=== PATIENT | male | born 1935 | race Caucasian/White ===

== ENCOUNTER 2016-09-08 21:29 | Inpatient (IN) | payer MEDICARE ==
--- NOTE | ~2016-09-08 | DS ---
Discharge Summary [address] [place]. [address] NAME: YIFAN STEWART : 31 STATUS : DIS IN PAT#: [id number] AGE: 81 ADM/REG DATE : 09/09/16 MR#: [id number] REPORT SERV DATE: 09/12/16 DICTATED BY: MIRIAN ATWOOD DATE: 09/11/16 REPORT STATUS : Draft TRANSCRIBED BY: MODL DATE: 09/11/16 ADMISSION DATE: 09/09/2016 DISCHARGE DATE: 09/11/2016 CONDITION ON DISCHARGE: The patient is being discharged home with home hospice after he has been evaluated by hospice team on 09/11/2016. This is per family request. The patient's code status is DNR and he is being sent home with home hospice. DIAGNOSIS ON DISCHARGE: Acute on chronic encephalopathy. This is ongoing. This could be secondary to gram-negative septicemia as the patient's blood culture 06/17 grew back gram- negative bacteria on 09/11/2016. The ID of this bacteria is pending at this time. After having a long discussion with the , the who has the power of personal injury attorney states that she absolutely does not want him on any IV antibiotics, but she would rather let him have p.o. antibiotics, and she states that she will be able to give the antibiotics by mouth with ice cream if the antibiotics can be crushed or the capsule can be split and the powder emptied in ice cream patient can have it that way. Again, this is per family request. Hence, while during hospital, hospice was consulted and the patient is being discharged home with home hospice. The only additional medicine we are sending him home on is aspirin 81 mg once a day and Levaquin 500 mg p.o. daily for seven days. The patient has also the following diagnoses on discharge: 1. Severe advanced dementia. 2. Dyslipidemia. The patient had an EEG that was read by Dr. Guillory on 09/10/2016 that showed that the patient had an abnormal EEG with slowing of the background secondary to encephalopathy including toxic metabolic encephalopathy. Dr. Simmons was consulted also for palliative care, and Dr. Simmons definitely referred the patient to hospice and agreed with family and that the patient was a hospice candidate because of the advanced dementia. Hence, the patient is being sent home with home hospice with the following medications: 1. Aspirin 81 mg once a day. 2. Levaquin 500 mg p.o. once a day for seven more days. 3. The levofloxacin itself is for gram-negative bacteria in the blood. 4. We will continue home medications that include Lipitor 20 mg once at bedtime, Aricept 10 mg once at bedtime, Namenda 5 mg p.o. b.i.d., Desyrel or trazodone 25 mg p.o. t.i.d., Neurontin 12 200 mg p.o. t.i.d. 5. Other medications will be per hospice. I do have the following most recent results on this patient. As the patient had 2 to 3 loose and unformed stools, we sent off a stool for C. diff. However, stool for C. diff came back negative. Also, stool studies have come back negative for Cryptosporidium. Other tests that the patient has had while in the hospital also includes culture of the Discharge Summary [address] [address] NAME: YIFAN STEWART : 33 STATUS : DIS IN PAT#: [id number] AGE: 81 ADM/REG DATE : 09/09/16 MR#: [id number] REPORT SERV DATE: 09/12/16 DICTATED BY: MIRIAN ATWOOD DATE: 09/11/16 REPORT STATUS : Draft TRANSCRIBED BY: ELIZABETH DATE: 09/11/16 stool that is still in progress at this time, but so far, no Shiga toxin has been detected. 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 His CBC so far is fairly normal with WBC of 7.8, hemoglobin 14.3, hematocrit of 42.4, and platelet count of 173. This is surprising for a patient with gram-negative bacilli in the blood. His blood pressure is stable also at this time. His electrolyte profile on 09/10/2016 shows sodium normal, potassium normal, BUN 17, creatinine 1.04, magnesium is normal too. Troponin I was slightly elevated at 0.05, likely demand related. No further action on this. Chest x-ray that he had showed lungs to be clear, heart size normal, and a small granuloma in the left upper lung field. CT scan of the brain without contrast also was in keeping with the MRI showing no acute CVA, but severe cerebral involutional changes. The patient also had a urinalysis that showed trace ketones, no leukocyte esterase, no blood, no nitrites, and occasional bacteria only. Hence, the patient is being sent home in stable condition with home hospice with medications as dictated above, and I have spent about 40 minutes in coordinating care of this patient including [id number] encounter, discussion of hospice with the patient's and also deciding on antibiotics, and also coordinating care with home hospice nurse. SHIRLEY/MODL Mirian Atwood M.D. / [id number] CC: Mirian Atwood M.D.
--- NOTE | ~2016-09-08 | CN ---
Consultation Report [facility] [address] [place]. [address] NAME: YIFAN STEWART : 31 STATUS : ADM Alexei PAT#: [id number] AGE: 81 ADM/REG DATE : 09/08/16 MR#: [id number] REPORT SERV DATE: 09/09/16 DICTATED BY: EDI PLATT DATE: 09/09/16 REPORT STATUS : Draft TRANSCRIBED BY: MODL DATE: 09/09/16 PALLIATIVE CARE CONSULTATION DATE OF CONSULTATION: 09/09/2016 CONSULT TIME: 1350 hours through 1435 hours. ALLERGIES: LISTED PENICILLIN, REACTION NOT SPECIFIED. REASON FOR CONSULTATION: Assistance with management and evaluation of altered mental status and progressive dementia. HISTORY OF PRESENT ILLNESS: Yifan is an 81-year-old gentleman who is cared for meticulously by his at home for a number of years. He has long-standing dementia. On Friday, he evidently experienced a period of altered mental status and subsequent unresponsiveness and apathy. He was spent most of Friday in bed, and because of concerns with hydration status, the brought him to the emergency room on Friday where he was admitted and evaluated. His laboratory parameters, radiological testing including CAT scan and chest x- ray as well as urinalysis were all unremarkable. We are asked to see him now in regard to his ongoing management caring for decision making and planning. The patient has a detailed power of commercial litigation attorney included in the chart, and the was quite clear about the fact that resuscitation life support etc. were not to be included in his care. We also got into a nutritional question at some point, and she was very clear that the feeding tube was also not something the patient had desired. Please see family history. In addition to increasing confusion and sleepiness, the patient also was having decreased activity overall. He would respond sluggishly to family request, but was much less interactive than his usual. The patient's usual status is that of a fairly demented gentleman, probably a FAST score of around 7A or 6D. He is incontinent for the most part, and as his relates to me, would say that he has to go to the bathroom, but subsequently on arrival in the bathroom, he is unclear as to why he is there. He has been wearing Depends for almost a year. His vocabulary is about 50% nonsensical speech. He is able to make some of his needs known. His bathes him. She also does his dressing. When she says that he is able to eat on his own, the daughter chimes in and notes that she does set up and then subsequently helps him eat. Other than a prior fall about in June of 2015 in which he had some facial trauma for which a CAT scan showed some facial injuries, he does not have much of the way of a medical history. His current home medications are listed in the chart, and with the exception of some Consultation Report [address] [place]. [address] NAME: YIFAN STEWART : 31 STATUS : ADM Alexei PAT#: [id number] AGE: 81 ADM/REG DATE : 09/08/16 MR#: [id number] REPORT SERV DATE: 09/09/16 DICTATED BY: EDI PLATT DATE: 09/09/16 REPORT STATUS : Draft TRANSCRIBED BY: ELIZABETH DATE: 09/09/16 trazodone and Neurontin, are really not very impressive for neuro active substances. There has been no medication changes or dose changes in the last 60 days. FAMILY HISTORY: Remarkable for the patient's father having had severe dementia given the patient's a willingness and desire to do a lot of advanced care planning before he ever got severely ill. He has been very clear about whom he wants to have involved in his decision making processes, his resuscitation desires which are DNR, as well as the use of a feeding tube. 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 He is a nonsmoker, nondrinker, no substance abuse, and has been to his , who is his primary caregiver for a number of years. Most of the information obtained on today's interview was provided by the patient's , Marina. We do not have much in the way of industrial exposures noted. REVIEW OF SYSTEMS: The patient's system review is remarkable for recent episodes of fatigue and weakness as well as withdrawal. In addition, he had one episode several weeks ago with severe drooling and salivation during a period of what was described as very deep sleep. His cardiovascular review was unimpressive. His respiratory review likewise unimpressive. GI, he is incontinent of bowel and bladder. The patient ambulates with standby assistance from his . He is unable to be left alone. He has had some intermittent headaches and is described as holding his head at times as well as some rocking motions. Psychiatric, no behavioral concerns or episodes. Endocrinology, skin, and pain history are negative. PHYSICAL EXAMINATION: GENERAL: Today shows a gentleman lying in bed, eating a sandwich with his right hand. He looks towards me, but says nothing. He then finishes his sandwich and goes to sleep. VITAL SIGNS: Blood pressure 134/58, pulse 77, respirations are 16, his temp is 99.6, BMI 26.6. Laboratories show essentially normal labs with the exception of a trivial elevation of troponin of 0.05. Constitutionally, we have a well-developed well nourished, somewhat withdrawn white male, who did not verbalize at all during the course of our interview. ENT: Unremarkable. CARDIOVASCULAR: Right bundle-branch block by telemetry, sinus rhythm. S1 and S2. No murmurs, gallops, or extra heart sounds. Periphery skin is warm and dry. No edema. RESPIRATIONS: Show coarse clear breath sounds. GI: History of diarrhea recently, which is not his usual pattern. : Incontinent. MUSCULOSKELETAL: Muscles are symmetrical without obvious atrophy. He moves all of his extremities around bed somewhat slowly but spontaneously, but not to command. NEUROLOGICAL: He looks at me, but does not follow with consistent commands. reports minimal speech which is garbled. It is somewhat improved over Friday. Consultation Report [address] [place]. [address] NAME: YIFAN STEWART : 31 STATUS : ADM Alexei PAT#: [id number] AGE: 81 ADM/REG DATE : 09/08/16 MR#: [id number] REPORT SERV DATE: 09/09/16 DICTATED BY: EDI PLATT DATE: 09/09/16 REPORT STATUS : Draft TRANSCRIBED BY: MODPalmira DATE: 09/09/16 PSYCH: No apparent distress. ENDOCRINE: TSH normal. ALLERGIES: Immunology negative. SKIN: Warm and dry without rash, petechiae, hemorrhage, or ecchymosis. IMPRESSION, RECOMMENDATION, AND DISCUSSION: This is an 81-year-old gentleman with a relatively sudden onset of a change in neurological status which appears to be slowly resolving. His laboratory parameters and other testing are relatively unimpressive. I wonder if he is not having underlying seizure problem. I think that given his current status, an MRI scan probably needs to get checked. I would also get PT and OT involved to do an assessment and see exactly what the home care situation is going to look like as the does have a part-time caregiver a couple of days a week and would certainly bring in more help if it would be required to have him at home. Placement is not an option. He may be hospice appropriate depending upon how his situation resolves and this may be worth investigating while he is here. Thank you for asking us to see this patient. We will of course follow him with you. YESSICA/ELIZABETH Edi Platt M.D. / [id number] CC: Aravind Singh
--- NOTE | ~2016-09-08 | EEG ---
Electroencephalogram [facility] [address] [place]. [address] NAME: YIFAN STEWART : 33 STATUS : ADM IN PAT#: [id number] AGE: 81 ADM/REG DATE : 09/09/16 MR#: [id number] REPORT SERV DATE: 09/10/16 DICTATED BY: ELIZABETH TOMLIN DATE: 09/10/16 REPORT STATUS : Draft TRANSCRIBED BY: MODL DATE: 09/10/16 EEG NUMBER: [id number]. HOURS OF SLEEP: 8 to 10. UPPER DOUBLER: Lamonte Guan INTRODUCTION: This is an 18-channel EEG recorded with scalp electrodes in the International 10-20 system. The patient is an 81-year-old male with altered mentation and inability to walk or speak. CURRENT MEDICATIONS: Include donepezil, atorvastatin, aspirin, Namenda, heparin, and trazodone. DESCRIPTION: The background rhythm while awake consisted of 5-6 hertz activity, which was present symmetrically. Slower and faster frequencies were intermixed. Intermittently movement and muscle artifact were present; however, the background rhythms remained even when alerted. Photic stimulation from the 1 through 21 hertz frequencies produced a symmetric driving response at the higher frequencies. There was also a large amount of eye movement artifact with photic stimulation. Hyperventilation was not performed. There was a continued frontal movement artifact and eye movement artifact throughout the EEG until immediately at the end of the EEG, he appeared to be come drowsy, but only for 30 seconds or so. On the EKG lead, a regular rhythm was recorded. IMPRESSION: THIS EEG IS ABNORMAL DUE TO MODERATE BACKGROUND SLOWING. THIS FINDING IS NONSPECIFIC AND MAY BE SEEN IN ENCEPHALOPATHIES OF POTENTIALLY MULTIPLE ETIOLOGIES INCLUDING TOXIC, METABOLIC, AND POSTICTAL STATES. AA/ELIZABETH Elizabeth Tomlin M.D. / [id number] CC: Aravind Mcknight ERIC
--- NOTE | ~2016-09-08 | HP ---
History And Physical [address] [facility] [place]. [address] NAME: YIFAN STEWART : 33 STATUS : ADM Alexei PAT#: [id number] AGE: 81 ADM/REG DATE : 09/08/16 MR#: [id number] REPORT SERV DATE: 09/09/16 DICTATED BY: ADOLFO WILHELM DATE: 09/09/16 REPORT STATUS : Draft TRANSCRIBED BY: MODPalmira DATE: 09/09/16 DATE OF ADMISSION: 09/08/2016 CHIEF COMPLAINT: Altered mental status and sleeping a lot. HISTORY OF PRESENT ILLNESS: This is an 81-year-old male with history of dementia, who presents to the emergency room at [facility] with the above-mentioned complaint. History is obtained from the patient's and daughter, who are at bedside, and reviewing data available on the [employer] system. According to the and the patient's daughter, he had been in his usual state of health until about Friday afternoon when he started having some confusion. He ate lunch and since then, he did not want any food at all. He said he was not hungry. Since then, he had been sleeping continuously, and over time it has become very hard to arouse or get a response from him. He had not taken any medications or anything to cause this. Again, he did not eat anything on Friday and slept through the day, and on Friday he was very difficult to arouse. This is a sudden change from his usual state. He does have severe dementia, but was able to take care of himself. He knew where he was, he used to eat by himself and do activities of daily living. The patient's and family were very concerned and decided to bring him to the emergency room to be evaluated. In the emergency room, he had altered mental status, encephalopathy, and troponin was elevated as well. Hospitalist Service is asked to admit him for further evaluation and treatment. At this time, his CT of the brain was negative. EKG showed normal sinus rhythm with a right bundle. At the time of my evaluation, he was quite obtunded, only grimacing to painful stimuli. All his vitals otherwise were within normal limits. But according to the , he had not complained of any chest pain or palpitations. She had not seen any orthopnea. He did not have any cough, hemoptysis, night sweats, or weight loss prior to all this. He has not had any recent falls or loss of consciousness. No history of recent fevers or chills. He had not had any nausea or vomiting. No history of diarrhea either. She had not seen any hematemesis, hematochezia, or hematuria. No other history of recent travel or exposures. PAST MEDICAL HISTORY: Significant for history of dementia. SOCIAL HISTORY: He does not smoke, drink, or use recreational drugs. 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 FAMILY HISTORY: Noncontributory. MEDICATIONS: His medications at home were reviewed by me in the chart today and reordered by me. REVIEW OF SYSTEMS: As in history of present illness. All other systems were reviewed in detail and are quite History And Physical [address] [place]. [address] NAME: YIFAN STEWART : 31 STATUS : ADM Alexei PAT#: [id number] AGE: 81 ADM/REG DATE : 09/08/16 MR#: [id number] REPORT SERV DATE: 09/09/16 DICTATED BY: ADOLFO WILHELM DATE: 09/09/16 REPORT STATUS : Draft TRANSCRIBED BY: ELIZABETH DATE: 09/09/16 unremarkable. PHYSICAL EXAMINATION: GENERAL: This is a pleasant 81-year-old, who appears to be not in any acute distress. HEENT: His head is atraumatic and normocephalic. He is not awake, oriented to time, place, and person. Pupils are equal, however equal, reacting to light and accommodating. NECK: Supple with no jugular venous distention, lymphadenopathy, or thyromegaly. LUNGS: Clear to auscultation with no wheezes, rubs, or crackles. HEART: Heart sounds were regular with no murmurs, rubs, or gallops. ABDOMEN: Soft, protuberant, and nontender. Bowel sounds are present. EXTREMITIES: No cyanosis, clubbing, or edema. NEUROLOGIC: Grossly intact. No focal deficits, although he was profoundly encephalopathic. VITAL SIGNS: His temperature today upon arrival was 97.6, pulse was 65, respirations were 25 a minute, and blood pressure was 123/62. Oxygen saturations were 97%, breathing 2 L of oxygen via nasal cannula. LABORATORY DATA: Reviewed on the [employer] system today showed normal CMP with a blood glucose of 99, his calcium was 7.9, magnesium was 2.2. His bilirubin was 3.1. Troponin was elevated at 0.05 today. We have no prior records. CBC showed a normal white blood cell count. Hemoglobin, hematocrit, and platelet count were also normal. His prothrombin time was 14.1 with an INR of 1.1. Urinalysis was grossly unremarkable. Films of the CT scan of his brain and chest x-ray were reviewed by me on the PACS today and interpreted by me. Per my interpretation and reviewing the Radiology report, there appears to be no acute intracranial process at this time. Chest x-ray films as interpreted by me showed no lobar consolidations or pleural effusions. There was no cardiomegaly. There was normal bony architecture. A 12-lead EKG done in the emergency room was reviewed and interpreted by me. There is normal sinus rhythm at a rate of [address] elevations. There is right bundle branch block. IMPRESSION: 1. Altered mental status. 2. Severe dementia. 3. Elevated troponin. 4. Right bundle-branch block. PLAN: We will admit Mr. Stewart to the Hospitalist Service with telemetry for a 24-hour observation period. We will follow serial troponin to rule out acute coronary syndrome and also check his TSH. We will start him on IV fluids cautiously for volume replacement and repeat chemistry, electrolytes, including a CBC in the morning. We will get Social Work to evaluate him for placement as well. Place him on unfractionated heparin for DVT prophylaxis while he is here. I have discussed the above plans with the patient and the family. History And Physical [address] [address] NAME: YIFAN STEWART : 31 STATUS : ADM Alexei PAT#: [id number] AGE: 81 ADM/REG DATE : 09/08/16 MR#: [id number] REPORT SERV DATE: 09/09/16 DICTATED BY: ADOLFO WILHELM DATE: 09/09/16 REPORT STATUS : Draft TRANSCRIBED BY: ELIZABETH DATE: 09/09/16 Questions were answered and they are agreeable to the above recommendations. Hospitalist Service will be following him during his stay here. /ELIZABETH Adolfo Wilhelm M.D. / [id number] CC: Aravind Singh MD
[2016-09-08 20:21] LABS: BASOPHILS 0.1 %; BASOPHILS ABSOLUTE 0.01 10/3/uL (0.0-0.16); EOSINOPHILS 0.1 %; EOSINOPHILS ABSOLUTE 0.01 10/3/uL (0.0-0.53); ER CBC TAT 0 Hrs 05 Mins; HEMATOCRIT 45.9 % (40.0-51.0); HEMOGLOBIN 15.5 g/dL (13.6-17.8); IMMATURE GRANULOCYTES 0.2 %; IMMATURE GRANULOCYTES ABSOLUTE 0.02 10/3/uL (0.0-0.11); LYMPHOCYTES 30.3 %; LYMPHOCYTES ABSOLUTE 2.84 10/3/uL (0.67-4.30); MEAN CORPUS HGB CONC 33.8 g/dL (32.0-36.0); MEAN CORPUSCULAR HEMOGLOB 31.6 pg (26.0-34.0); MEAN CORPUSCULAR VOLUME 93.5 fL (80-100); MONOCYTES 18.8 %; MONOCYTES ABSOLUTE 1.76 10/3/uL (0.21-1.20); NEUTROPHILS 50.5 %; NEUTROPHILS ABSOLUTE 4.73 10/3/uL (2.02-8.40); PLATELET COUNT 174 10/3/uL (150-400); RBC DISTRIBUTION WIDTH 12.7 % (12.0-16.0); RED CELL COUNT 4.91 10/6/uL (4.7-6.1); WHITE BLOOD CELLS 9.4 10/3/uL (4.5-10.5)
[2016-09-08 20:22] LABS: MANUAL DIFF NO %
[2016-09-08 20:32] LABS: INTERNATIONAL NORMAL RATI 1.1 UNITS (-); PARTIAL THROMBO TIME 31.8 SEC (22.5-37.2); PROTIME (NOT ORD) 14.1 SEC (12.0-14.5)
[2016-09-08 20:37] LABS: ALBUMIN 3.1 G/DL (3.5-5.0); ALKALINE PHOSPHATASE 80 U/L (45-117); BUN (BLOOD UREA NITROGEN) 22 MG/DL (6-23); CALCIUM, SERUM 7.9 MG/DL (8.5-10.4); CHLORIDE, SERUM 106 MMOL/L (96-112); CO2 (CARBON DIOXIDE) 28 MMOL/L (24-34); CREATININE 1.16 MG/DL (0.70-1.30); GFR AFRICAN AMERICAN 67 ML/MIN (>=60); GFR NON AFRICAN AMERICAN 58 ML/MIN (>=60); GLUCOSE, SERUM 99 MG/DL (60-99); POTASSIUM, SERUM 4.2 MMOL/L (3.5-5.3); SGPT(ALT) 44 U/L (5-65); SODIUM, SERUM 143 MMOL/L (135-148); TOTAL BILIRUBIN 0.8 MG/DL (0-1.2); TOTAL PROTEIN 7.1 G/DL (6.0-8.5)
[2016-09-08 20:38] LABS: DIRECT BILIRUBIN < 0.1 MG/DL (0.0-0.4); INDIRECT BILIRUBIN(NOT ORDER) 0.7 MG/DL (0.1-0.9); SGOT(AST) 148 U/L (5-40)
[2016-09-08 20:39] LABS: CHEST PAIN PROFILE TAT 0 Hrs 23 Mins; TROPONIN I 0.05 NG/ML (<0.05)
[2016-09-08 20:41] LABS: WBC (NOT ORDERED) (RFLEX) 0 (0-5)
[2016-09-08 20:51] LABS: ASCORBIC ACID (UR NOT ORDER) 40 (NEG); BILIRUBIN, URINE NEGATIVE (NEG); ER URINALYSIS TAT 0 Hrs 11 Mins; KETONE, URINE TRACE MG/DL (NEG); LEUKOCYTE ESTERASE(NOT OR NEG (NEG); NITRITE (URINE) NEG (NEG)
[2016-09-08] MEDS ORDERED: TRAZ50 PO (22:11)
[2016-09-08] MEDS ORDERED: NEUR100 PO (22:11)
[2016-09-08] MEDS ORDERED: NAMENDA5 PO (22:11)
[2016-09-08] MEDS ORDERED: REFRESH OPH (22:11)
[2016-09-08] MEDS ORDERED: ARICEPT10 PO (22:12)
[2016-09-08] MEDS ORDERED: LIPITOR20 PO (22:12)
[2016-09-09 08:46] LABS: BASOPHILS 0.1 %; BASOPHILS ABSOLUTE 0.01 10/3/uL (0.0-0.16); EOSINOPHILS 0.1 %; EOSINOPHILS ABSOLUTE 0.01 10/3/uL (0.0-0.53); HEMATOCRIT 44.8 % (40.0-51.0); HEMOGLOBIN 14.9 g/dL (13.6-17.8); IMMATURE GRANULOCYTES 0.1 %; IMMATURE GRANULOCYTES ABSOLUTE 0.01 10/3/uL (0.0-0.11); LYMPHOCYTES 42.7 %; LYMPHOCYTES ABSOLUTE 3.29 10/3/uL (0.67-4.30); MEAN CORPUS HGB CONC 33.3 g/dL (32.0-36.0); MEAN CORPUSCULAR HEMOGLOB 31.6 pg (26.0-34.0); MEAN CORPUSCULAR VOLUME 94.9 fL (80-100); MONOCYTES ABSOLUTE 1.08 10/3/uL (0.21-1.20); PLATELET COUNT 190 10/3/uL (150-400); RBC DISTRIBUTION WIDTH 12.7 % (12.0-16.0); RED CELL COUNT 4.72 10/6/uL (4.7-6.1); WHITE BLOOD CELLS 7.7 10/3/uL (4.5-10.5)
[2016-09-09 08:48] LABS: MANUAL DIFF NO %
[2016-09-09 09:06] LABS: BUN (BLOOD UREA NITROGEN) 21 MG/DL (6-23); CHLORIDE, SERUM 106 MMOL/L (96-112); CO2 (CARBON DIOXIDE) 31 MMOL/L (24-34); GFR AFRICAN AMERICAN 64 ML/MIN (>=60); GFR NON AFRICAN AMERICAN 56 ML/MIN (>=60); GLUCOSE, SERUM 169 MG/DL (60-99); PHOSPHORUS, SERUM 2.6 MG/DL (2.5-4.5); POTASSIUM, SERUM 4.2 MMOL/L (3.5-5.3); SODIUM, SERUM 144 MMOL/L (135-148); TROPONIN I 0.04 NG/ML (<0.05)
[2016-09-10 06:23] LABS: BASOPHILS 0.1 %; BASOPHILS ABSOLUTE 0.01 10/3/uL (0.0-0.16); EOSINOPHILS 0.4 %; EOSINOPHILS ABSOLUTE 0.03 10/3/uL (0.0-0.53); HEMATOCRIT 42.4 % (40.0-51.0); HEMOGLOBIN 14.3 g/dL (13.6-17.8); IMMATURE GRANULOCYTES 0.3 %; IMMATURE GRANULOCYTES ABSOLUTE 0.02 10/3/uL (0.0-0.11); LYMPHOCYTES 44.2 %; LYMPHOCYTES ABSOLUTE 3.44 10/3/uL (0.67-4.30); MEAN CORPUS HGB CONC 33.7 g/dL (32.0-36.0); MEAN CORPUSCULAR HEMOGLOB 31.4 pg (26.0-34.0); MEAN CORPUSCULAR VOLUME 93.2 fL (80-100); MEAN PLATELET VOLUME 9.7 fL (9.2-13.0); MONOCYTES 14.5 %; MONOCYTES ABSOLUTE 1.13 10/3/uL (0.21-1.20); NEUTROPHILS 40.5 %; NEUTROPHILS ABSOLUTE 3.16 10/3/uL (2.02-8.40); PLATELET COUNT 173 10/3/uL (150-400); RBC DISTRIBUTION WIDTH 12.6 % (12.0-16.0); RED CELL COUNT 4.55 10/6/uL (4.7-6.1); WHITE BLOOD CELLS 7.8 10/3/uL (4.5-10.5)
[2016-09-10 06:25] LABS: MANUAL DIFF NO %
[2016-09-10 06:40] LABS: BUN (BLOOD UREA NITROGEN) 17 MG/DL (6-23); CALCIUM, SERUM 7.8 MG/DL (8.5-10.4); CHLORIDE, SERUM 104 MMOL/L (96-112); CO2 (CARBON DIOXIDE) 27 MMOL/L (24-34); CREATININE 1.04 MG/DL (0.70-1.30); GFR AFRICAN AMERICAN 77 ML/MIN (>=60); GFR NON AFRICAN AMERICAN 66 ML/MIN (>=60); GLUCOSE, SERUM 114 MG/DL (60-99); POTASSIUM, SERUM 3.6 MMOL/L (3.5-5.3); SODIUM, SERUM 139 MMOL/L (135-148)
[2016-09-10 07:42] LABS: BAND NEUTROPHILS 8 %; IMMATURE GRANS ABSOLUTE (CALC) 0.08 10/3/uL (0.0-0.11); LYMPHOCYTES 20 %; LYMPHOCYTES ABSOLUTE (CALC) 1.56 10/3/uL (0.67-4.30); METAMYELOCYTES 1 %; MONOCYTES 7 %; MONOCYTES ABSOLUTE (CALC) 0.55 10/3/uL (0.21-1.20); NEUTROPHILS ABSOLUTE (CALC) 5.62 10/3/uL (2.02-8.40); PLATELET ESTIMATE SLT DEC (ADEQUATE); RBC MORPHOLOGY NORM (NORMAL); SEGMENTED NEUTROPHIL (0) 64 %; TOTAL NUCLEATED CELLS 100
== END 2016-09-11 19:15 | disposition hospice, home (50) | DRG 871 ==
LOC: ER 21:29 → 1SO 22:01
PROVIDERS: Emergency Medicine; Internal Medicine Pulmonary Disease; Nurse Practitioner
DX: A41.9 Sepsis, unspecified organism (principal); G92 Toxic encephalopathy; I45.10 Unspecified right bundle-branch block; G30.9 Alzheimer's disease, unspecified; F02.80 Dementia in other diseases classified elsewhere, unspecified severity, without behavioral disturbance, psychotic disturbance, mood disturbance, and anxiety; Z51.5 Encounter for palliative care; Z66 Do not resuscitate; E78.5 Hyperlipidemia, unspecified
CPT/HCPCS: 70450; 70551; 71010; 80048; 80076; 81001; 83735; 84100; 84443; 84484; 85025; 85610; 85730; 87040; 87045; 87046; 87046-59; 87150; 87328; 87329; 87493; 87493-59; 87899; 87899-59; 93005; 95816; 99285; A9270-GY; J1956